=== PATIENT | female | born 1980 | race Asian ===

== ENCOUNTER 2016-11-08 00:10 | Inpatient (IN) | payer SELFPAY ==
[~2016-11-08] VITALS: Ht 162.6 cm; Wt 65.3 kg
[2016-11-08] MEDS ORDERED: OXYTOCIN 20 UNITS/LR PREMIX 1,000 ML IV SCH (00:59)
[2016-11-08] MEDS ORDERED: METHYLERGONOVINE 0.2 MG/ML AMP IM PRN ×2 (01:00→21:45)
[2016-11-08] MEDS ORDERED: CARBOPROST 250 MCG/ML AMP IM PRN (01:00)
[2016-11-08] MEDS ORDERED: NALBUPHINE 10 MG/ML AMP IVP PRN (01:00)
[2016-11-08] MEDS ORDERED: IBUPROFEN 800 MG TAB PO PRN (01:00)
[2016-11-08] MEDS ORDERED: MISOPROSTOL 25 MCG TAB VG SCH (01:00)
[2016-11-08] MEDS ORDERED: PROMETHAZINE 25 MG/ML VIAL IVP PRN (01:00)
[2016-11-08 01:29] LABS: BASOPHILS # (AUTO) 0.1 K/uL (0.00-0.22); BASOPHILS % (AUTO) 0.9 % (0.0-2.0); EOSINOPHILS # (AUTO) 0.1 K/uL (0-0.4); EOSINOPHILS % (AUTO) 1.8 % (0.0-4.0); HEMATOCRIT 37.4 % (36-48); HEMOGLOBIN 12.4 g/dL (12.0-16.0); LYMPHOCYTES # (AUTO) 1.6 K/uL (2.5-16.5); LYMPHOCYTES % (AUTO) 27.8 % (20.5-51.1); MEAN CORPUSCULAR HEMOGLOBIN 33 pg (27-31); MEAN CORPUSCULAR HGB CONC 33 g/dL (33-37); MEAN CORPUSCULAR VOLUME 100 fL (80-94); MONOCYTES # (AUTO) 0.4 K/uL (0.8-1.0); MONOCYTES % (AUTO) 6.4 % (1.7-9.3); NEUTROPHILS # (AUTO) 3.7 K/uL (1.8-7.7); NEUTROPHILS % (AUTO) 63.1 % (42.2-75.2); PLATELET COUNT (AUTO) 183 K/uL (140-450); RED BLOOD CELL COUNT(AUTO) 3.75 MIL/uL (4.20-5.40); RED CELL DISTRIBUTION WIDTH 12.5 % (11.6-13.7); WHITE BLOOD COUNT (AUTO) 5.9 K/uL (4.8-10.8)
[2016-11-08 01:30] VITALS: BP 118/56
[2016-11-08] MEDS: LACTATED RINGERS 1,000 ML IV SCH ×3 (01:50→11:29)
[2016-11-08] MEDS ORDERED: OXYTOCIN 10 UNITS/ML VIAL IM SCH (02:00)
[2016-11-08 02:05] LABS: HIV RAPID SCREEN NON-REACTIVE (NON REACTIV)
[2016-11-08] MEDS ORDERED: AMPICILLIN 2,000 MG in NACL 0.9% 100 ML IV SCH (02:05)
[2016-11-08 02:32] LABS: APPEARANCE,URINE CLEAR (CLEAR); BILIRUBIN,URINE NEGATIVE (NEGATIVE); BLOOD, URINE 2+ (NEGATIVE); COLOR,URINE YELLOW (YELLOW); LEUKOCYTE ESTERASE ,URINE NEGATIVE (NEGATIVE); NITRITE, URINE NEGATIVE (NEGATIVE); PROTEIN,URINE NEGATIVE (NEGATIVE); UGLUCOSE NEGATIVE (NEGATIVE); UROBILINOGEN,URINE 0.2 EU/dL (0.2 - 1)
[2016-11-08 02:43] LABS: BACTERIA,URINE RARE /HPF (None Seen); RBC,URINE 0-3 /HPF (0-5); SQUAMOUS EPITHELIAL CELL,UR 0-3 /LPF (0-3 (FEW)); WBC,URINE 0-3 /HPF (0-5)
[2016-11-08] MEDS ORDERED: AMPICILLIN 2,000 MG VIAL ONE (02:59)
[2016-11-08] MEDS ORDERED: PREN-380 PO (03:30)
[2016-11-08] MEDS ORDERED: AMPICILLIN 1,000 MG in NACL 0.9% 50 ML IV SCH (04:00)
[2016-11-08] MEDS ORDERED: MISOPROSTOL 25 MCG TAB ONE ×2 (04:22→08:43)
[2016-11-08] MEDS: MISOPROSTOL 25 MCG TAB VG PRN ×2 (04:28→08:39)
[2016-11-08] MEDS ORDERED: ROPIVACAINE 0.2%/NS PREMIX 250 ML EPI ONE (06:45)
[2016-11-08] MEDS ORDERED: AMPICILLIN 1,000 MG VIAL ONE (06:48)
[2016-11-08] MEDS ORDERED: ROPIVACAINE 0.2%/NS PREMIX 250 ML EPI SCH (07:10)
--- NOTE | 2016-11-08 10:13 | NUR ---
PATIENT HAS BEEN SCREENED AND CATEGORIZED LOW NUTRITION RISK. PATIENT WILL BE SEEN WITHIN 7 DAYS OF ADMISSION. 11/15/[address]
[2016-11-08] MEDS ORDERED: OXYTOCIN 20 UNITS/LR PREMIX 1,000 ML IV ONE (13:56)
[2016-11-08] MEDS ORDERED: OXYTOCIN 10 UNITS/ML VIAL ONE (15:27)
[2016-11-08] MEDS ORDERED: MEASLES, MUMPS, AND RUBELLA 1 VIAL SQVAC PRN (21:45)
[2016-11-08] MEDS ORDERED: OXYTOCIN 10 UNITS/ML VIAL IM PRN (21:45)
[2016-11-08] MEDS ORDERED: WITCH HAZEL 40 PAD PACKAGE TP PRN (21:45)
[2016-11-08] MEDS ORDERED: TEMAZEPAM 15 MG CAP PO PRN (21:45)
[2016-11-08] MEDS ORDERED: BENZOCAINE/MENTHOL 20%-0.5% 60 GM CAN TP PRN (21:45)
[2016-11-08] MEDS ORDERED: HYDROcodone/APAP 5/325 MG 1 TAB TAB PO PRN (21:45)
[2016-11-09 05:59] LABS: RAPID PLASMA REAGIN NON-REACTIVE (Non Reactiv)
[2016-11-09 06:22] LABS: HEMATOCRIT 30.3 % (36-48); HEMOGLOBIN 10.2 g/dL (12.0-16.0)
[2016-11-09] MEDS: oxyCODONE/APAP 5/325 MG 1 TAB TAB PO PRN ×2 (13:59→23:50)
[2016-11-09] MEDS ORDERED: SHARK OIL/PHENYLEPHRINE 60 GM TUBE TP PRN (14:05)
[2016-11-09] MEDS ORDERED: DOCUSATE SOD/SENNA 50/8.6 MG 1 TAB PO SCH (21:00)
[2016-11-10] MEDS ORDERED: IBUP-2213 PO (10:10)
== END 2016-11-10 11:30 | disposition home or self-care (01) | DRG 775 ==
LOC: MLD 00:10 → MFCC 21:00
PROVIDERS: ADMIT Obstetrics & Gynecology; ATTEND Obstetrics & Gynecology
PROC: 10E0XZZ Delivery of Products of Conception, External Approach (ICD-10-PCS; principal; 2016-11-08)
PROC: 10907ZC Drainage of Amniotic Fluid, Therapeutic from Products of Conception, Via Natural or Artificial Opening (ICD-10-PCS; 2016-11-08)
PROC: 0W8NXZZ Division of Female Perineum, External Approach (ICD-10-PCS; 2016-11-08)
PROC: 0HQ9XZZ Repair Perineum Skin, External Approach (ICD-10-PCS; 2016-11-08)
PROC: 3E0P7GC Introduction of Other Therapeutic Substance into Female Reproductive, Via Natural or Artificial Opening (ICD-10-PCS; 2016-11-08)
PROC: 00HU33Z Insertion of Infusion Device into Spinal Canal, Percutaneous Approach (ICD-10-PCS; 2016-11-08)
PROC: 3E0S3CZ (ICD-10-PCS; 2016-11-08)
PROC: 3E0234Z Introduction of Serum, Toxoid and Vaccine into Muscle, Percutaneous Approach (ICD-10-PCS; 2016-11-08)
DX: O70.9 Perineal laceration during delivery, unspecified (principal); Z3A.39 39 weeks gestation of pregnancy; Z37.0 Single live birth; O09.523 Supervision of elderly multigravida, third trimester; Z23 Encounter for immunization
CPT/HCPCS: 36415; 51702; 59200; 59409; 81001; 85018; 85025; 86592; 86886; 86900; 86901; 87653-90; 90707; 90715; J0290; J2590; J2795; J7120